=== PATIENT | female | born 1990 | race American Indian/Alaskan Native ===

== ENCOUNTER 2016-10-09 12:27 | Outpatient (CLI) | payer BC ==
[2016-10-09 13:00] LABS: Calcium 8.4 mg/dL (8.4-10.2); Chloride 100.5 mmol/L (98-107); Magnesium 1.4 mg/dL (1.7-2.3)
== END 2016-10-09 12:28 | disposition home or self-care (01) ==
LOC: LAB 12:27
DX: I50.22 Chronic systolic (congestive) heart failure (principal); R18.8 Other ascites; Z94.1 Heart transplant status; Z95.810 Presence of automatic (implantable) cardiac defibrillator
CPT/HCPCS: 36415; 80048; 83735

== ENCOUNTER 2016-10-23 11:58 | Outpatient (CLI) | payer BC ==
[2016-10-23 12:17] LABS: Basophils % (Auto) 1.2 % (0.0-1.8); Eosinophils % (Auto) 3.5 % (0.0-4.3); Hematocrit 36.3 % (30.3-42.9); Hemoglobin 11.7 gm/dl (10.1-14.3); Mean Corpuscular HGB Conc 32 % (30-34); Mean Corpuscular Volume 77 fl (79-97); Platelet Count 255 K/mm3 (140-440); Red Cell Distribution Width 16.2 % (13.2-15.2); White Blood Count 3.8 K/mm3 (4.5-11.0)
[2016-10-23 12:19] LABS: Mean Corpuscular Hemoglobin 25 pg (28-32)
[2016-10-23 12:29] LABS: BUN/Creatinine Ratio 25.33; Calcium 8.6 mg/dL (8.4-10.2); Magnesium 1.4 mg/dL (1.7-2.3); Potassium 3.7 mmol/L (3.6-5.0)
== END 2016-10-23 11:59 | disposition home or self-care (01) ==
LOC: LABHHL 11:58
DX: I50.22 Chronic systolic (congestive) heart failure (principal); R18.8 Other ascites; Z94.1 Heart transplant status
CPT/HCPCS: 36415; 80048; 83735; 85025

== ENCOUNTER 2016-11-06 12:00 | Outpatient (CLI) | payer BC ==
[2016-11-06 12:12] LABS: Basophils % (Auto) 1.8 % (0.0-1.8); Hematocrit 35.1 % (30.3-42.9); Hemoglobin 10.9 gm/dl (10.1-14.3); Mean Corpuscular HGB Conc 31 % (30-34); Mean Corpuscular Volume 79 fl (79-97); Platelet Count 248 K/mm3 (140-440); Red Blood Count 4.45 M/mm3 (3.65-5.03); Red Cell Distribution Width 17.3 % (13.2-15.2); White Blood Count 3.5 K/mm3 (4.5-11.0)
[2016-11-06 12:13] LABS: Mean Corpuscular Hemoglobin 25 pg (28-32)
[2016-11-06 12:35] LABS: BUN/Creatinine Ratio 23.84; Calcium 8.7 mg/dL (8.4-10.2); Chloride 98.9 mmol/L (98-107); Magnesium 1.6 mg/dL (1.7-2.3); Potassium 3.8 mmol/L (3.6-5.0)
== END 2016-11-06 12:01 | disposition home or self-care (01) ==
LOC: LABHHL 12:00
DX: I50.22 Chronic systolic (congestive) heart failure (principal); R18.8 Other ascites; Z94.1 Heart transplant status
CPT/HCPCS: 36415; 80048; 83735; 85025

== ENCOUNTER 2016-11-20 12:07 | Outpatient (CLI) | payer BC ==
[2016-11-20 12:20] LABS: Basophils % (Auto) 1.2 % (0.0-1.8); Eosinophils % (Auto) 3.6 % (0.0-4.3); Hematocrit 36.3 % (30.3-42.9); Hemoglobin 11.5 gm/dl (10.1-14.3); Mean Corpuscular HGB Conc 32 % (30-34); Mean Corpuscular Hemoglobin 24 pg (28-32); Mean Corpuscular Volume 77 fl (79-97); Platelet Count 263 K/mm3 (140-440); Red Blood Count 4.71 M/mm3 (3.65-5.03); Red Cell Distribution Width 17.2 % (13.2-15.2); White Blood Count 3.1 K/mm3 (4.5-11.0)
[2016-11-20 12:36] LABS: BUN/Creatinine Ratio 17.61; Calcium 9.1 mg/dL (8.4-10.2); Chloride 97.9 mmol/L (98-107); Magnesium 1.4 mg/dL (1.7-2.3); Potassium 3.4 mmol/L (3.6-5.0)
== END 2016-11-20 12:08 | disposition home or self-care (01) ==
LOC: LABHHL 12:07
PROVIDERS: ATTEND Internal Medicine Cardiovascular Disease
DX: I50.22 Chronic systolic (congestive) heart failure (principal); R18.8 Other ascites; Z94.1 Heart transplant status
CPT/HCPCS: 36415; 80048; 83735; 85025

== ENCOUNTER 2016-11-27 12:05 | Outpatient (CLI) | payer BC ==
[2016-11-27 12:34] LABS: Basophils % (Auto) 1.3 % (0.0-1.8); Eosinophils % (Auto) 3.5 % (0.0-4.3); Hematocrit 36.9 % (30.3-42.9); Hemoglobin 11.7 gm/dl (10.1-14.3); Mean Corpuscular HGB Conc 32 % (30-34); Mean Corpuscular Hemoglobin 24 pg (28-32); Mean Corpuscular Volume 77 fl (79-97); Platelet Count 236 K/mm3 (140-440); Red Cell Distribution Width 18.2 % (13.2-15.2); White Blood Count 4.5 K/mm3 (4.5-11.0)
[2016-11-27 12:47] LABS: Calcium 8.6 mg/dL (8.4-10.2); Chloride 98.2 mmol/L (98-107); Magnesium 1.3 mg/dL (1.7-2.3); Potassium 3.7 mmol/L (3.6-5.0)
== END 2016-11-27 12:06 | disposition home or self-care (01) ==
LOC: LABHHL 12:05
PROVIDERS: ATTEND Internal Medicine Cardiovascular Disease
DX: I50.22 Chronic systolic (congestive) heart failure (principal); R18.8 Other ascites; Z94.1 Heart transplant status
CPT/HCPCS: 36415; 80048; 83735; 85025

== ENCOUNTER 2016-12-18 12:05 | Outpatient (CLI) | payer BC ==
[2016-12-18 12:25] LABS: Basophils % (Auto) 0.5 % (0.0-1.8); Eosinophils % (Auto) 0.8 % (0.0-4.3); Hematocrit 33.8 % (30.3-42.9); Hemoglobin 11.4 gm/dl (10.1-14.3); Mean Corpuscular HGB Conc 34 % (30-34); Mean Corpuscular Volume 77 fl (79-97); Platelet Count 199 K/mm3 (140-440); White Blood Count 3.9 K/mm3 (4.5-11.0)
[2016-12-18 12:36] LABS: Mean Corpuscular Hemoglobin 26 pg (28-32); Red Cell Distribution Width 20.2 % (13.2-15.2)
[2016-12-18 12:47] LABS: Calcium 8.6 mg/dL (8.4-10.2); Chloride 100.3 mmol/L (98-107); Magnesium 1.4 mg/dL (1.7-2.3); Potassium 3.7 mmol/L (3.6-5.0)
== END 2016-12-18 12:06 | disposition home or self-care (01) ==
LOC: LAB 12:05
PROVIDERS: ATTEND Internal Medicine Cardiovascular Disease
DX: I50.22 Chronic systolic (congestive) heart failure (principal); R18.8 Other ascites; Z94.1 Heart transplant status
CPT/HCPCS: 36415; 80048; 83735; 85025

== ENCOUNTER 2017-02-12 13:02 | Outpatient (CLI) | payer BC ==
[2017-02-12 13:26] LABS: Basophils % (Auto) 1.4 % (0.0-1.8); Eosinophils % (Auto) 2.9 % (0.0-4.3); Hematocrit 37.2 % (30.3-42.9); Mean Corpuscular HGB Conc 32 % (30-34); Mean Corpuscular Volume 76 fl (79-97); Platelet Count 282 K/mm3 (140-440); Red Blood Count 4.88 M/mm3 (3.65-5.03); White Blood Count 3.7 K/mm3 (4.5-11.0)
[2017-02-12 13:27] LABS: Mean Corpuscular Hemoglobin 25 pg (28-32)
[2017-02-12 13:33] LABS: Calcium 9.2 mg/dL (8.4-10.2); Chloride 91.9 mmol/L (98-107); Magnesium 1.9 mg/dL (1.7-2.3); Potassium 3.3 mmol/L (3.6-5.0)
== END 2017-02-12 13:03 | disposition home or self-care (01) ==
LOC: LAB 13:02
PROVIDERS: ATTEND Internal Medicine Cardiovascular Disease
DX: I50.22 Chronic systolic (congestive) heart failure (principal); R18.8 Other ascites; Z94.1 Heart transplant status
CPT/HCPCS: 36415; 80048; 83735; 85025

== ENCOUNTER 2017-03-26 13:19 | Outpatient (CLI) | payer BC ==
[2017-03-26 13:55] LABS: Calcium 8.7 mg/dL (8.4-10.2); Magnesium 1.6 mg/dL (1.7-2.3)
[2017-03-26 13:59] LABS: Basophils % (Auto) 1.2 % (0.0-1.8); Eosinophils # (Auto) 0.2 K/mm3 (0.0-0.4); Eosinophils % (Auto) 4.6 % (0.0-4.3); Hematocrit 38.3 % (30.3-42.9); Hemoglobin 12.1 gm/dl (10.1-14.3); Lymphocytes # (Auto) 0.9 K/mm3 (1.2-5.4); Lymphocytes % (Auto) 27.9 % (13.4-35.0); Mean Corpuscular HGB Conc 32 % (30-34); Mean Corpuscular Volume 79 fl (79-97); Monocytes # (Auto) 0.3 K/mm3 (0.0-0.8); Monocytes % (Auto) 10.3 % (0.0-7.3); Platelet Count 258 K/mm3 (140-440); Red Blood Count 4.85 M/mm3 (3.65-5.03)
[2017-03-26 14:06] LABS: Mean Corpuscular Hemoglobin 25 pg (28-32); Red Cell Distribution Width 20.5 % (13.2-15.2)
== END 2017-03-26 13:20 | disposition home or self-care (01) ==
LOC: LABHHL 13:19
PROVIDERS: ATTEND Internal Medicine Cardiovascular Disease
DX: I50.22 Chronic systolic (congestive) heart failure (principal); R18.8 Other ascites; Z94.1 Heart transplant status; Z95.810 Presence of automatic (implantable) cardiac defibrillator
CPT/HCPCS: 36415; 80048; 83735; 85025

== ENCOUNTER 2017-04-23 12:11 | Outpatient (CLI) | payer BC ==
[2017-04-23 12:28] LABS: Hematocrit 36.3 % (30.3-42.9); Hemoglobin 11.9 gm/dl (10.1-14.3); Mean Corpuscular HGB Conc 33 % (30-34); Mean Corpuscular Volume 73 fl (79-97); Platelet Count 273 K/mm3 (140-440); Red Cell Distribution Width 19.7 % (13.2-15.2)
[2017-04-23 12:33] LABS: Mean Corpuscular Hemoglobin 24 pg (28-32)
[2017-04-23 12:48] LABS: Calcium 9.4 mg/dL (8.4-10.2)
[2017-04-23 13:46] LABS: Basophils % (Manual) 0 % (0.0-1.8); Hypochromasia 1+; Total Cells Counted 100
[2017-04-23 13:47] LABS: Anisocytosis 1+; Target Cells Few
== END 2017-04-23 12:12 | disposition home or self-care (01) ==
LOC: LABHHL 12:11
PROVIDERS: ATTEND Internal Medicine Cardiovascular Disease
DX: I50.22 Chronic systolic (congestive) heart failure (principal); R18.8 Other ascites; Z94.1 Heart transplant status; Z95.810 Presence of automatic (implantable) cardiac defibrillator
CPT/HCPCS: 36415; 80048; 83735; 85007; 85025

== ENCOUNTER 2017-05-21 12:27 | Outpatient (CLI) | payer BC ==
[2017-05-21 12:45] LABS: Basophils # (Auto) 0.1 K/mm3 (0.0-0.1); Basophils % (Auto) 2.2 % (0.0-1.8); Eosinophils # (Auto) 0.1 K/mm3 (0.0-0.4); Hematocrit 36.5 % (30.3-42.9); Hemoglobin 11.8 gm/dl (10.1-14.3); Lymphocytes # (Auto) 0.9 K/mm3 (1.2-5.4); Mean Corpuscular HGB Conc 32 % (30-34); Mean Corpuscular Volume 72 fl (79-97); Monocytes # (Auto) 0.3 K/mm3 (0.0-0.8); Monocytes % (Auto) 13.1 % (0.0-7.3); Platelet Count 268 K/mm3 (140-440); Red Blood Count 5.08 M/mm3 (3.65-5.03)
[2017-05-21 12:46] LABS: Mean Corpuscular Hemoglobin 23 pg (28-32); Red Cell Distribution Width 20.1 % (13.2-15.2)
[2017-05-21 12:56] LABS: Calcium 9.5 mg/dL (8.4-10.2)
== END 2017-05-21 12:28 | disposition home or self-care (01) ==
LOC: LAB 12:27
PROVIDERS: ATTEND Internal Medicine Cardiovascular Disease
DX: I50.22 Chronic systolic (congestive) heart failure (principal); R18.8 Other ascites; Z94.1 Heart transplant status; Z95.810 Presence of automatic (implantable) cardiac defibrillator
CPT/HCPCS: 36415; 80048; 83735; 85025